=== PATIENT | female | born 1985 | race Caucasian/White ===

== ENCOUNTER 2020-11-19 18:35 | Emergency (ER) | payer BC | END 2020-11-19 20:04 | disposition home or self-care (01) | LOC: ER1 18:35 | DX: I83.93 Asymptomatic varicose veins of bilateral lower extremities (principal); Z87.442 Personal history of urinary calculi | CPT/HCPCS: 99283 ==

== ENCOUNTER → 2020-11-20 | Outpatient (CLI) | payer BC ==
[~2020-11-20] MED LIST: ALAVERT10 MG PO; DOCUSATE SODIU250 MG PO; FEOSOL325 MG PO; FEROSUL325 MG PO; FLONASE 0.05% N16 GM; HYDROCODONE-AC1 EACH PO; IBUPROFEN600 MG PO; PRENATAL VITAM1 EAC8 PO
== END ==
LOC: US 11:00
DX: M79.604 Pain in right leg (principal)
CPT/HCPCS: 93971

== ENCOUNTER 2021-01-21 15:35 | Outpatient (CLI) | payer BC | END 2021-01-21 18:21 | disposition home or self-care (01) | LOC: GENOP 15:35 | DX: O26.853 Spotting complicating pregnancy, third trimester (principal); O99.891 Other specified diseases and conditions complicating pregnancy; M54.9 Dorsalgia, unspecified; O99.343 Other mental disorders complicating pregnancy, third trimester; F41.9 Anxiety disorder, unspecified; O99.013 Anemia complicating pregnancy, third trimester; D64.9 Anemia, unspecified; Z3A.40 40 weeks gestation of pregnancy | CPT/HCPCS: 81001; G0463 ==

== ENCOUNTER 2021-01-24 17:10 | Inpatient (IN) | payer BC ==
[~2021-01-24] VITALS: Ht 162.6 cm; Wt 77.6 kg
[2021-01-24] MEDS ORDERED: FLONASE 0.05% N16 GM (17:33)
[2021-01-24] MEDS ORDERED: ALAVERT10 MG PO (17:33)
[2021-01-24] MEDS ORDERED: PRENATAL VITAM1 EAC8 PO (17:34)
[2021-01-24] MEDS ORDERED: FEOSOL325 MG PO (17:34)
[2021-01-24 18:23] LABS: HEMOGLOBIN 11.6 gm/dl (12.3-15.3); RED BLOOD COUNT 3.59 M/UL (4.00-5.10); WHITE BLOOD COUNT 11.4 K/UL (4.5-11.0)
[2021-01-26 05:31] LABS: HEMOGLOBIN 10.5 gm/dl (12.3-15.3)
[2021-01-27] MEDS ORDERED: DOCUSATE SODIU250 MG PO (15:43)
[2021-01-27] MEDS ORDERED: IBUPROFEN600 MG PO (15:43)
[2021-01-27] MEDS ORDERED: HYDROCODONE-AC1 EACH PO (15:43)
[2021-01-27] MEDS ORDERED: FEROSUL325 MG PO (15:43)
== END 2021-01-27 18:29 | disposition home or self-care (01) | DRG 807 ==
LOC: GENOP 17:10 → OB 17:27
PROVIDERS: Obstetrics & Gynecology; ADMIT Obstetrics & Gynecology
PROC: 10907ZC Drainage of Amniotic Fluid, Therapeutic from Products of Conception, Via Natural or Artificial Opening (ICD-10-PCS; 2021-01-24)
PROC: 10E0XZZ Delivery of Products of Conception, External Approach (ICD-10-PCS; principal; 2021-01-25)
PROC: 0KQM0ZZ Repair Perineum Muscle, Open Approach (ICD-10-PCS; 2021-01-25)
DX: O99.344 Other mental disorders complicating childbirth (principal); Z37.0 Single live birth; O48.0 Post-term pregnancy; O99.02 Anemia complicating childbirth; Z3A.40 40 weeks gestation of pregnancy; Z20.822 Contact with and (suspected) exposure to COVID-19; O70.1 Second degree perineal laceration during delivery
CPT/HCPCS: 36415; 51702; 81001; 82800; 85014; 85018; 85025; 90471; 90715; J2590; U0002